=== PATIENT | female | born 1990 ===

== ENCOUNTER 2020-02-04 20:15 | Emergency (ER) | payer SELFPAY ==
[2020-02-04 21:07] LABS: Amorphous Crystals,Urine Few; Bacteria,Urine 1+ /HPF (Negative); Bilirubin,Urine NEG (Negative); Blood,Urine NEG (Negative); Color,Urine Yellow (Yellow); Mucus,Urine FEW /HPF; Urobilinogen,Urine < 2.0 mg/dL (<2.0)
[2020-02-04 21:18] LABS: Basophils % (Auto) 0.5 % (0.0-1.8); Eosinophils # (Auto) 0.3 K/mm3 (0.0-0.4); Eosinophils % (Auto) 3.2 % (0.0-4.3); Hematocrit 47.3 % (30.3-42.9); Hemoglobin 15.7 gm/dl (10.1-14.3); Lymphocytes # (Auto) 2.7 K/mm3 (1.2-5.4); Lymphocytes % (Auto) 30.5 % (13.4-35.0); Mean Corpuscular HGB Conc 33 % (30-34); Mean Corpuscular Volume 87 fl (79-97); Monocytes # (Auto) 0.8 K/mm3 (0.0-0.8); Monocytes % (Auto) 8.9 % (0.0-7.3); Platelet Count 237 K/mm3 (140-440); Red Blood Count 5.42 M/mm3 (3.65-5.03); Red Cell Distribution Width 15.8 % (13.2-15.2)
[2020-02-04 21:36] LABS: Alanine Aminotransferase 91 units/L (7-56); Albumin 4.5 g/dL (3.9-5); BUN/Creatinine Ratio 28; Blood Urea Nitrogen 17 mg/dL (7-17); Calcium 9.6 mg/dL (8.4-10.2); Hemolysis Index 25
[2020-02-05] MEDS ORDERED: ONDANSETRON 4 MG/2 ML INJ IV ONE (03:24)
[2020-02-05] MEDS ORDERED: HYDROmorphone 1 MG/1 ML INJ IV ONE (03:24)
--- NOTE | 2020-02-05 03:27 | Emergency Department Report ---
ED Abdominal Pain HPI - General Chief Complaint: Abdominal Pain Stated Complaint: BAD STOMACH PAIN Time Seen by Provider: 02/05/20 03:07 Source: patient Mode of arrival: Ambulatory Limitations: No Limitations - History of Present Illness Initial Comments: 29-year-old morbid obese female presents to the emergency room for left lower abdominal pain x8 days with worsening pain today. Patient admits to nausea and vomiting x2 today. Patient states that her pain at this moment is 10 out of 10 and sharp and radiates to the back. Patient states that the pain is worse with movement and palpation. Patient reports is better with rest. Patient admits to chills no fever. She denies any hematochezia, hematuria and hematemesis. Patient denies any shortness of breath no chest pain. She does admit to irregular periods. Patient is on dapple and late by 3 days of getting her neck shot. She denies any dysuria no vaginal bleeding no vaginal discharge. She is 4 para 3 with last menstrual period 01/31/2020 and is currently on her cycle. Patient reports she has a past medical history of hypertension. MD Complaint: abdominal pain Onset/Timin -: days(s) Location: LLQ Radiation: back Severity scale (0 -10): 10 Quality: sharp Consistency: constant Improves With: rest Worsens With: movement, other (Palpation) Associated Symptoms: nausea, vomiting (X2), chills. denies: diarrhea, fever, dysuria, hematemesis, hematochezia, hematuria - Related Data Previous Rx's Medication Instructions Recorded Last Taken Type Ibuprofen [Motrin 800 MG tab] 800 mg PO Q8HR PRN #30 tablet 02/05/20 Unknown Rx Allergies Allergy/AdvReac Type Severity Reaction Status Date / Time No Known Allergies Allergy Unverified 02/04/20 20:47 ED Review of Systems ROS: Stated complaint: BAD STOMACH PAIN Other details as noted in HPI Comment: All other systems reviewed and negative Respiratory: denies: cough, shortness of breath Cardiovascular: denies: chest pain Gastrointestinal: abdominal pain, nausea, vomiting. denies: diarrhea, constipation, hematemesis, hematochezia Genitourinary: abnormal menses. denies: dysuria, hematuria, discharge ED Past Medical Hx - Past Medical History Previous Medical History?: No - Surgical History Past Surgical History?: No - Medications Home Medications: Home Medications Medication Instructions Recorded Confirmed Last Taken Type Ibuprofen [Motrin 800 MG tab] 800 mg PO Q8HR PRN #30 tablet 02/05/20 Unknown Rx ED Physical Exam - General Limitations: No Limitations General appearance: alert, in distress - Head Head exam: Present: atraumatic, normocephalic - Eye Eye exam: Present: normal appearance - ENT ENT exam: Present: normal exam, mucous membranes moist - Neck Neck exam: Present: normal inspection, full ROM - Respiratory Respiratory exam: Present: normal lung sounds bilaterally. Absent: respiratory distress - Cardiovascular Cardiovascular Exam: Present: regular rate, normal rhythm. Absent: systolic murmur, diastolic murmur, rubs, gallop - GI/Abdominal GI/Abdominal exam: Present: soft, tenderness. Absent: distended - Extremities Exam Extremities exam: Present: normal inspection - Back Exam Back exam: Present: normal inspection - Neurological Exam Neurological exam: Present: alert, oriented X3, normal gait - Psychiatric Psychiatric exam: Present: normal affect, normal mood - Skin Skin exam: Present: warm, dry, intact, normal color. Absent: rash ED Course Vital Signs 02/04/20 02/05/20 20:32 05:08 Temperature 98.7 F 97.8 F Pulse Rate 110 H 88 Respiratory 18 18 Rate Blood Pressure 147/81 Blood Pressure 114/71 [Right] O2 Sat by Pulse 96 99 Oximetry ED Medical Decision Making - Lab Data Result diagrams: 02/04/20 20:56 02/04/20 20:56 - Radiology Data Radiology results: report reviewed Print Report Referring Physician:JEOVANNY Parker Name:AMBER Nolascoent ID:[id number] of :[id number]:FemaleAccession:[id number] Date:[id number] Status:Finalized Findings [facility] [address] [place] [address] Cat Scan Report Signed Patient: AMBER LAM MR#: [id number] 8 : 1990 Acct:[id number] Age/Sex: 29 / F ADM Date: 02/04/20 Loc: ED Attending Dr: Ordering Physician: THOMPSON LOPES Date of Service: 02/05/20 Procedure(s): CT abdomen pelvis w con Accession Number(s): [id number] cc: THOMPSON LOPES CT ABDOMEN AND PELVIS WITH IV CONTRAST INDICATION: MAIN. COMPARISON: None available. TECHNIQUE: Axial CT images were obtained through the abdomen and pelvis after 100 mL IV contrast. All CT scans at this location are performed using CT dose reduction for ALARA by means of automated exposure control. FINDINGS -- ABDOMEN: Lung Bases: No acute abnormality. Liver: Fatty liver. Gallbladder: Normal. Bile Ducts: Normal. Pancreas: Normal. Spleen: Normal. Adrenals: Normal. Right Kidney and Proximal Ureter: Normal. Left Kidney and Proximal Ureter: Normal. Stomach and Bowel: Normal. Lymph Nodes: No significant adenopathy. Aorta: No significant abnormality. IVC: Normal. Additional Findings: Prominent fat-containing periumbilical hernia.. FINDINGS -- PELVIS: Urinary Bladder and Distal Ureters: Normal. Reproductive Organs: Small 1.8 cm cyst arising from the left ovary.. Appendix: Normal. Bowel: No acute abnormality. Free Fluid: None. Lymph Nodes: No significant adenopathy. Additional Findings: None. Skeletal System: No acute abnormality. IMPRESSION: 1. No acute process in the abdomen or pelvis. Fatty liver and other incidental findings as noted above. Signer Name: Eleazar Jurado MD Signed: 02/05/2020 4:56 AM Workstation Name: [id number] Transcribed By: Dictated By: Eleazar Jurado MD Electronically Authenticated By: Eleazar Jurado MD Signed Date/Time: 02/05/20 0456 DD/ 0454 TD/TT: - Medical Decision Making 29-year-old morbid obese female presents to the emergency room for left lower abdominal pain x8 days with worsening pain today. Patient admits to nausea and vomiting x2 today. Patient states that her pain at this moment is 10 out of 10 and sharp and radiates to the back. Patient states that the pain is worse with movement and palpation. Patient reports is better with rest. Patient admits to chills no fever. She denies any hematochezia, hematuria and hematemesis. Patient denies any shortness of breath no chest pain. She does admit to irregular periods. Patient is on dapple and late by 3 days of getting her neck shot. She denies any dysuria no vaginal bleeding no vaginal discharge. She is 4 para 3 with last menstrual period 01/31/2020 and is currently on her cycle. Patient reports she has a past medical history of hypertension. Labs are stable. CT with contrast of the abdomen and pelvis has been ordered. CT shows a left ovarian cyst and fatty liver disease. Recommend ibuprofen 800 mg 3 times daily as needed and follow-up with an OPERATIONS REPRESENTATIVE. Critical care attestation.: If time is entered above; I have spent that time in minutes in the direct care of this critically ill patient, excluding procedure time. ED Disposition Clinical Impression: Left ovarian cyst, Severely overweight Disposition: DC-01 TO HOME OR SELFCARE Is pt being admited?: No Does the pt Need Aspirin: No Condition: Stable Instructions: Ovarian Cyst (ED), Obesity (ED), Abdominal Pain (ED) Additional Instructions: CT shows a left ovarian cyst and fatty liver disease. Recommend ibuprofen 800 mg 3 times daily as needed and follow-up with an OPERATIONS REPRESENTATIVE. Prescriptions: Ibuprofen [Motrin 800 MG tab] 800 mg PO Q8HR PRN #30 tablet PRN Reason: Pain , Severe (7-10) Referrals: PRIMARY CARE, [Primary Care Provider] - 3-5 Days [facility] [Provider Group] - 3-5 Days [facility] [Provider Group] - 3-5 Days
[2020-02-05] MEDS ORDERED: SODIUM CHLORIDE 0.9% 1000 ML 1,000 ML IV ONE (03:28)
--- NOTE | 2020-02-05 05:00 | Cat Scan Report ---
CT ABDOMEN AND PELVIS WITH IV CONTRAST INDICATION: MAIN. COMPARISON: None available. TECHNIQUE: Axial CT images were obtained through the abdomen and pelvis after 100 mL IV contrast. All CT scans a t this location are performed using CT dose reduction for ALARA by means of automated exposure contro l. FINDINGS -- ABDOMEN: Lung Bases: No acute abnormality. Liver: Fatty liver. Gallbladder: Normal. Bile Ducts: Normal. Pancreas: Normal. Spleen: Normal. Adrenals: Normal. Right Kidney and Proximal Ureter: Normal. Left Kidney and Proximal Ureter: Normal. Stomach and Bowel: Normal. Lymph Nodes: No significant adenopathy. Aorta: No significant abnormality. IVC: Normal. Additional Findings: Prominent fat-containing periumbilical hernia.. FINDINGS -- PELVIS: Urinary Bladder and Distal Ureters: Normal. Reproductive Organs: Small 1.8 cm cyst arising from the left ovary.. Appendix: Normal. Bowel: No acute abnormality. Free Fluid: None. Lymph Nodes: No significant adenopathy. Additional Findings: None. Skeletal System: No acute abnormality. IMPRESSION: 1. No acute process in the abdomen or pelvis. Fatty liver and other incidental findings as noted lincoln [facility]ol[facility] Signer Name: Eleazar Jurado MD Signed: 02/05/2020 4:56 AM Workstation Name: [id number]
[2020-02-05 05:09] VITALS: BP 114/71
== END 2020-02-05 06:55 | disposition home or self-care (01) ==
LOC: ED 20:15
DX: N83.202 Unspecified ovarian cyst, left side (principal); R11.2 Nausea with vomiting, unspecified; E66.3 Overweight; Z68.43 Body mass index [BMI] 50.0-59.9, adult; Z79.1 Long term (current) use of non-steroidal anti-inflammatories (NSAID)
CPT/HCPCS: 36415; 74177; 80053; 81001; 84703; 85025; 96361; 96374; 96375; 99284; J1170; J2405; J7030; Q9967